=== PATIENT | male | born 1960 | race American Indian/Alaskan Native ===

== ENCOUNTER 2021-01-02 08:59 | Emergency (ER) | payer OTHER ==
[2021-01-02 09:11] VITALS: BP 128/81
[2021-01-02] MEDS ORDERED: TETANUS,DIPH,PERTUSS(ACELL) VACCINE 0.5 ML SYRINGE IM ONE (10:12)
--- NOTE | 2021-01-02 11:01 | Emergency Department Report ---
ED General Adult HPI - General Chief complaint: Head Injury Stated complaint: HEAD INJURY Time Seen by Provider: 01/02/21 10:10 Source: patient Mode of arrival: Ambulatory Limitations: No Limitations - History of Present Illness Initial comments: Patient is a 60-year-old male who presents emergency room with complaints of a minor head injury that occurred around 8 AM this morning. Patient states that he was working in crawl space with some wiring. He states that he stood up and hit his head against a metal object and has a laceration to the frontal scalp. He is unsure of his last tetanus immunization. He denies any loss of consciousness, headache, vision changes, vomiting, numbness, weakness, bowel or bladder incontinence, lightheadedness, dizziness, any other injury. He has a past medical history of ulcerative colitis. He denies any medication allergies. He denies being on any blood thinners. - Related Data Allergies Allergy/AdvReac Type Severity Reaction Status Date / Time No Known Allergies Allergy Unverified 01/02/21 09:07 ED Review of Systems ROS: Stated complaint: HEAD INJURY Other details as noted in HPI Comment: All other systems reviewed and negative ED Past Medical Hx - Past Medical History Previous Medical History?: Yes Additional medical history: ulcerative colitis - Surgical History Past Surgical History?: No ED Physical Exam - General Limitations: No Limitations General appearance: alert, in no apparent distress - Head Head exam: Present: other (2 cm irregular shaped laceration present to the left frontal scalp, very superficial, only involves the skin layers, no subcutaneous fat involvement, no foreign body, no skull bony ttp, no facial bony ttp, no crepitus, no deformity) - Eye Eye exam: Present: normal appearance, PERRL, EOMI. Absent: periorbital swelling, periorbital tenderness Pupils: Present: normal accommodation - ENT ENT exam: Present: mucous membranes moist - Neck Neck exam: Present: normal inspection, full ROM. Absent: tenderness, meningismus - Respiratory Respiratory exam: Absent: respiratory distress, accessory muscle use - Neurological Exam Neurological exam: Present: alert, oriented X3, CN II-XII intact, normal gait. Absent: motor sensory deficit - Psychiatric Psychiatric exam: Present: normal affect, normal mood - Skin Skin exam: Present: warm, dry ED Course Vital Signs 01/02/21 09:09 Temperature 98.1 F Pulse Rate 91 H Respiratory 18 Rate Blood Pressure 128/81 O2 Sat by Pulse 99 Oximetry - Laceration /Wound Repair Left Head Wound Location: head (left frontal scalp) Wound Length (cm): 2 Wound's Depth, Shape: superficial, irregular Wound Explored: clean Irrigated w/ Saline (ccs): 50 Betadine Prep?: Yes Volume Anesthetic (ccs): 0 Wound Debrided: moderate Wound Repaired With: Steri-strips, Dermabond Layer Closure?: No Sterile Dressing Applied?: Yes Progress: Wound irrigated with saline and thoroughly scrubbed with Betadine, very superficial, no foreign body, multiple layers of Dermabond placed with good skin approximation, there is no bleeding, patient tolerated well, Steri-Strips applied, no complications ED Medical Decision Making - Medical Decision Making Patient is a 60-year-old male who presents emergency room with complaints of a m inor head injury that occurred around 8 AM this morning. Patient states that he was working in crawl space with some wiring. He states that he stood up and hit his head against a metal object and has a laceration to the frontal scalp. He is unsure of his last tetanus immunization. He denies any loss of consciousness, headache, vision changes, vomiting, numbness, weakness, bowel or bladder incon tinence, lightheadedness, dizziness, any other injury. He has a past medical history of ulcerative colitis. He denies any medication allergies. He denies being on any blood thinners. Vitals are normal. No neurological deficits on exam, on exam:2 cm irregular shaped laceration present to the left frontal scalp, very superficial, only involves the skin layers, no subcutaneous fat involvement, no foreign body, no skull bony ttp, no facial bony ttp, no crepitus, no deformity. Morris CT head rule is 0, CT head imaging is not recommended. Very superficial laceration repaired per procedure note with Dermabond and Steri-Strips with no complications. Advised patient Please keep area clean, dry, covered. Please do not get area wet for the next 2 days. After 2 days may gently wash with antibacterial soap and water and pat dry. No hot tub, no pool, no soaking in water. Showering is fine after 2 days. Follow- up with your primary care doctor for reexamination. Return to emergency room immediately for any new or worsening symptoms including but not limited to worsening headache, vision changes, vomiting, numbness, weakness, speech disturbance, difficulty walking, loss of consciousness, etc. - Differential Diagnosis Minor head injury, laceration, contusion, hematoma, abrasion, ICH Critical care attestation.: If time is entered above; I have spent that time in minutes in the direct care of this critically ill patient, excluding procedure time. ED Disposition Clinical Impression: Minor head injury without loss of consciousness Qualifiers: Encounter type: initial encounter Qualified Code(s): S09.90XA - Unspecified injury of head, initial encounter Scalp laceration Qualifiers: Encounter type: initial encounter Qualified Code(s): S01.01XA - Laceration without foreign body of scalp, initial encounter Disposition: TO HOME OR SELFCARE Is pt being admited?: No Does the pt Need Aspirin: No Condition: Stable Instructions: Head Injury, Adult, Sutures, [place], or Adhesive Wound Closure Additional Instructions: Please keep area clean, dry, covered. Please do not get area wet for the next 2 days. After 2 days may gently wash with antibacterial soap and water and pat dry. No hot tub, no pool, no soaking in water. Showering is fine after 2 days. Follow-up with your primary care doctor for reexamination. Return to emergency room immediately for any new or worsening symptoms including but not limited to worsening headache, vision changes, vomiting, numbness, weakness, speech disturbance, difficulty walking, loss of consciousness, etc. Referrals: PRIMARY CARE, [Primary Care Provider] - 2-3 Days Time of Disposition: 11:01 Print Language: [place]
== END 2021-01-02 11:22 | disposition home or self-care (01) ==
LOC: ED 08:59
DX: S01.01XA Laceration without foreign body of scalp, initial encounter (principal); W22.8XXA Striking against or struck by other objects, initial encounter; Y93.89 Activity, other specified; Y92.89 Other specified places as the place of occurrence of the external cause; Y99.8 Other external cause status
CPT/HCPCS: 90471; 90715